=== PATIENT | female | born 1985 | race Caucasian/White ===

== ENCOUNTER 2016-07-11 19:06 | Emergency (ER) | payer SELFPAY ==
[2016-07-11 19:15] VITALS: PULSE 98; RESP 16; TEMP 97.5; O2SAT 97
[2016-07-11] MEDS ORDERED: KETOROLAC TROMETHAMINE 30 MG/ML SOL IM ONE (19:55)
[2016-07-11] MEDS ORDERED: CLINDAMYCIN HYDROCHLORIDE 150 MG CAP PO SCH (20:00)
[2016-07-11] MEDS ORDERED: KETOROLAC TROMETHAMINE 30 MG/ML SOL ONE (20:00)
[2016-07-11] MEDS ORDERED: DOXYCYCLINE 100 MG TAB PO SCH (20:15)
[2016-07-11] MEDS ORDERED: DOXYCYCLINE 100 MG TAB ONE (20:19)
[2016-07-11 20:51] VITALS: BP 139/92
== END 2016-07-11 20:43 | disposition home or self-care (01) | DRG 159 ==
LOC: ED 19:06
DX: K08.89 Other specified disorders of teeth and supporting structures (principal); K02.9 Dental caries, unspecified; K05.00 Acute gingivitis, plaque induced
CPT/HCPCS: 96372; 99282; 99283; J1885